=== PATIENT | female | born 1935 | race Hispanic/Latino ===

== ENCOUNTER 2022-04-18 13:29 | Emergency (ER) | payer MEDICARE, OTHER ==
[~2022-04-18] VITALS: Ht 157.5 cm; Wt 61.2 kg
[~2022-04-18 13:29] MED LIST: ALENDRONATE SOD70 MG PO; PRAVASTATIN SOD40 MG PO; Z LABETALOL HCL PO; Z.0.CATAPRES0.2 MG PO; Z.0.DIOVAN320 MG PO; Z.0.HYDRALAZINE HCL5 PO; Z.0.METOPROLOL TART2 PO; Z.0.NORVASC10 MG PO; Z.0.OMEPRAZOLE40 MG PO; Z.0.XANAX0.25 MG PO
[2022-04-18 16:26] VITALS: BP 163/72
== END 2022-04-18 16:28 | disposition home or self-care (01) ==
LOC: FSED 13:42
DX: R42 Dizziness and giddiness (principal); I10 Essential (primary) hypertension; Z86.73 Personal history of transient ischemic attack (TIA), and cerebral infarction without residual deficits
CPT/HCPCS: 70450; 70496; 70498; 71045; 80053; 82553; 84484; 85025; 85379; 93005; 99283

== ENCOUNTER 2024-10-11 10:35 | Emergency (ER) | payer MEDICARE, OTHER ==
[~2024-10-11] VITALS: Ht 154.9 cm; Wt 61.2 kg
[2024-10-11 10:41] VITALS: PULSE 66; RESP 18; TEMP 97; O2SAT 99
[2024-10-11] MEDS: ACETAMINOPHEN 325 MG TAB PO ONE (11:32)
[2024-10-11] MEDS: DEXAMETHASONE SOD PHOS INJ 4 MG/ML SDV IM ONE (11:33)
[2024-10-11] MEDS ORDERED: MEDROL4 MG PO (12:08)
[2024-10-11] MEDS ORDERED: MEDROL4 M2 PO (12:10)
[2024-10-11] MEDS ORDERED: METHOCARBAMOL750 MG PO (12:10)
== END 2024-10-11 12:21 | disposition home or self-care (01) ==
LOC: FSED 10:39
DX: M54.6 Pain in thoracic spine (principal); M54.50 Low back pain, unspecified; M62.830 Muscle spasm of back; X50.0XXA Overexertion from strenuous movement or load, initial encounter; I10 Essential (primary) hypertension; Z86.73 Personal history of transient ischemic attack (TIA), and cerebral infarction without residual deficits
CPT/HCPCS: 72070; 99283; J1100